=== PATIENT | male | born 1985 | race Caucasian/White ===

== ENCOUNTER 2017-04-11 20:35 | Emergency (ER) | payer OTHER ==
[~2017-04-11] VITALS: Ht 175.3 cm; Wt 103.1 kg
[~2017-04-11 20:35] MED LIST: ADVIL,NUPRIN,M200 MG PO; DOXYCYCLINE HY100 M3 PO; GABAPENTIN400 MG PO; PERCOCET 5/31 TABLET PO; SYSTANE ULTRA 015 ML RIGHT EYE; TYLENOL EXTRA500 MG PO
[2017-04-11 23:26] VITALS: BP 104/65
== END 2017-04-11 23:51 | disposition home or self-care (01) ==
LOC: EME 20:35 → RME 20:35
DX: G43.919 Migraine, unspecified, intractable, without status migrainosus (principal); I10 Essential (primary) hypertension; J45.909 Unspecified asthma, uncomplicated; F32.9 Major depressive disorder, single episode, unspecified; F17.200 Nicotine dependence, unspecified, uncomplicated; F19.10 Other psychoactive substance abuse, uncomplicated; F10.10 Alcohol abuse, uncomplicated; Z91.041 Radiographic dye allergy status
CPT/HCPCS: 99281; 99284; J1100; J1200; J1885; J2765; J7030

== ENCOUNTER 2017-05-01 09:32 | Emergency (ER) | payer OTHER ==
[~2017-05-01] VITALS: Ht 175.3 cm; Wt 102.2 kg
[2017-05-01 11:28] LABS: BASOPHIL COUNT 0.1 K/uL (0-0.1); EOSINOPHIL (%) 0.6 % (0-5); EOSINOPHIL COUNT 0.1 K/uL (0-0.3); HEMATOCRIT 42.7 % (38.0-50.0); IMMATURE GRANULOCYTE (%) 0.2 % (0.0-0.7); INSTRUMENT ABS NEUTROPHIL CT 10.1 K/uL; LYMPHOCYTE COUNT 2.5 K/uL (1.0-2.8); MCH 29.8 PG (29.0-34.0); MCV 90.3 FL (86-99); MEAN PLAT.VOLUME 10.7 uM^3 (9.0-12.4); MONOCYTE (%) 13.5 % (3-12); NEUTROPHIL (%) 68.1 % (45-76); NEUTROPHIL COUNT 10.1 K/uL (1.8-6.4); PLATELET COUNT 254 K/uL (156-360); RBC DIS.WIDTH-CV 12.6 % (11.8-14.6); RBC DIS.WIDTH-SD 42.1 % (39-53); RED BLOOD COUNT 4.73 M/uL (4.00-5.50); WHITE BLOOD COUNT 14.8 K/uL (4.1-10.2)
[2017-05-01 11:37] LABS: CHLORIDE 105 mEq/L (99-109); SODIUM 140 mEq/L (136-147)
[2017-05-01 11:39] LABS: GLUCOSE 98 mg/dL (70-99)
[2017-05-01 11:41] LABS: ANION GAP 9 MEQ/L (2-14)
[2017-05-01 11:43] LABS: GFR ESTIMATE (CALCULATED) > 59 mL/min/
[2017-05-01 11:44] LABS: UREA NITROGEN (BUN) 10 mg/dL (9-23)
[2017-05-01] MEDS ORDERED: ZITHROMAX Z-PA250 MG PO (13:47)
[2017-05-01 14:00] VITALS: BP 129/56
== END 2017-05-01 14:01 | disposition home or self-care (01) ==
LOC: EME 09:32
PROVIDERS: Emergency Medicine
DX: J20.9 Acute bronchitis, unspecified (principal); J45.909 Unspecified asthma, uncomplicated; I10 Essential (primary) hypertension; F32.9 Major depressive disorder, single episode, unspecified; F17.200 Nicotine dependence, unspecified, uncomplicated; F19.10 Other psychoactive substance abuse, uncomplicated; F10.10 Alcohol abuse, uncomplicated
CPT/HCPCS: 71020; 80048; 85025; 99281; 99283

== ENCOUNTER 2017-11-15 09:43 | Emergency (ER) | payer OTHER ==
[~2017-11-15] VITALS: Ht 175.3 cm; Wt 92.8 kg
[~2017-11-15 09:43] MED LIST changes: +ZITHROMAX Z-PA250 MG PO
[2017-11-15 10:31] LABS: HEMATOCRIT 40.6 % (38.0-50.0); MCH 29.9 PG (29.0-34.0); MCHC 34.5 G/DL (30.0-36.0); MCV 86.8 FL (86-99); PLATELET COUNT 220 K/uL (156-360); RBC DIS.WIDTH-CV 14.6 % (11.8-14.6); RBC DIS.WIDTH-SD 46.5 % (39-53); RED BLOOD COUNT 4.68 M/uL (4.00-5.50); WHITE BLOOD COUNT 13.7 K/uL (4.1-10.2)
[2017-11-15 10:49] LABS: ALBUMIN 3.8 g/dL (3.2-4.8); CHLORIDE 107 mEq/L (99-109); POTASSIUM 3.8 mEq/L (3.7-5.4); SODIUM 141 mEq/L (136-147)
[2017-11-15 10:52] LABS: GLUCOSE 117 mg/dL (70-99); TOTAL PROTEIN 6.8 g/dL (6.4-8.3)
[2017-11-15 10:53] LABS: TOTAL BILIRUBIN 0.3 mg/dL (0.0-1.0)
[2017-11-15 10:55] LABS: ALKALINE PHOSPHATASE 75 IU/L (3-129); CREATININE 0.8 mg/dL (0.6-1.3); GFR ESTIMATE (CALCULATED) > 59 mL/min/ (58.99-99999)
[2017-11-15 10:56] LABS: UREA NITROGEN (BUN) 10 mg/dL (9-23)
[2017-11-15 10:57] LABS: AST (GOT) 16 IU/L (2-34)
[2017-11-15 10:58] LABS: ALT (GPT) 22 IU/L (3-49)
[2017-11-15 10:59] LABS: LIPASE 68 U/L (1.0-51.0)
[2017-11-15 11:03] LABS: MONOSPOT (MONONUCLEOSIS SEROL) NEGATIVE
[2017-11-15 13:19] LABS: APPEARANCE CLEAR ((CLEAR)); BILIRUBIN NEGATIVE; BLOOD NEGATIVE; COLOR YELLOW ((YELLOW)); GLUCOSE (STRIP) NEGATIVE; KETONES NEGATIVE; LEUKOCYTES NEGATIVE; NITRITE NEGATIVE; PROTEIN (STRIP) NEGATIVE; SPECIFIC GRAVITY 1.006 (1.000-1.030); UCUL ADDED? NO; UROBILINOGEN 0.2 MG/DL (0.2-1.0)
[2017-11-15 13:49] VITALS: BP 137/58
[2017-11-15 15:06] LABS: THYROTROPIN (TSH) 0.16 MIU/L (0.4-5.5)
[2017-11-16 10:29] LABS: LYME DISEASE SEROLOGY SCREEN NEGATIVE (NEGATIVE)
== END 2017-11-15 13:51 | disposition home or self-care (01) ==
LOC: EME 09:43
PROVIDERS: Physician Assistant
DX: R74.8 Abnormal levels of other serum enzymes (principal); R10.9 Unspecified abdominal pain; I10 Essential (primary) hypertension; J45.909 Unspecified asthma, uncomplicated; F32.9 Major depressive disorder, single episode, unspecified; F17.200 Nicotine dependence, unspecified, uncomplicated; Z86.69 Personal history of other diseases of the nervous system and sense organs; Z88.5 Allergy status to narcotic agent; Z91.041 Radiographic dye allergy status
CPT/HCPCS: 71046; 74176; 80053; 81003; 83690; 84439; 84443; 85027; 86308; 86618; 86664; 86665; 87502; 87651 90; 99281; 99284; J7030

== ENCOUNTER 2017-12-24 16:00 | Emergency (ER) | payer OTHER ==
[~2017-12-24] VITALS: Ht 175.3 cm; Wt 87.8 kg
[2017-12-24 17:07] LABS: HEMATOCRIT 45.6 % (38.0-50.0); HEMOGLOBIN 15.6 G/DL (12.5-16.6); MCH 30.2 PG (29.0-34.0); MCHC 34.2 G/DL (30.0-36.0); MCV 88.2 FL (86-99); PLATELET COUNT 243 K/uL (156-360); RBC DIS.WIDTH-CV 14.2 % (11.8-14.6); RBC DIS.WIDTH-SD 46.2 % (39-53); RED BLOOD COUNT 5.17 M/uL (4.00-5.50); WHITE BLOOD COUNT 10.6 K/uL (4.1-10.2)
[2017-12-24 17:18] LABS: ALBUMIN 4.4 g/dL (3.2-4.8); CHLORIDE 109 mEq/L (99-109); POTASSIUM 3.9 mEq/L (3.7-5.4); SODIUM 143 mEq/L (136-147)
[2017-12-24 17:20] LABS: GLUCOSE 105 mg/dL (70-99)
[2017-12-24 17:21] LABS: TOTAL PROTEIN 7.2 g/dL (6.4-8.3)
[2017-12-24 17:22] LABS: TOTAL BILIRUBIN 0.5 mg/dL (0.0-1.0)
[2017-12-24 17:24] LABS: ALKALINE PHOSPHATASE 72 IU/L (3-129); GFR ESTIMATE (CALCULATED) > 59 mL/min/ (58.99-99999)
[2017-12-24 17:25] LABS: UREA NITROGEN (BUN) 9 mg/dL (9-23)
[2017-12-24 17:26] LABS: AST (GOT) 24 IU/L (2-34)
[2017-12-24 17:27] LABS: ALT (GPT) 25 IU/L (3-49)
[2017-12-24 17:33] LABS: TROP-I INTERPRETATION NEGATIVE; TROPONIN-I < 0.01 ng/mL (0.0-0.30)
[2017-12-24 18:47] VITALS: BP 154/108
== END 2017-12-24 18:39 | disposition home or self-care (01) ==
LOC: EME 16:00
PROVIDERS: Emergency Medicine
DX: R55 Syncope and collapse (principal); J45.909 Unspecified asthma, uncomplicated; I10 Essential (primary) hypertension; F43.10 Post-traumatic stress disorder, unspecified; G43.909 Migraine, unspecified, not intractable, without status migrainosus; F32.9 Major depressive disorder, single episode, unspecified; F17.200 Nicotine dependence, unspecified, uncomplicated; Z87.19 Personal history of other diseases of the digestive system; Z91.041 Radiographic dye allergy status; Z88.5 Allergy status to narcotic agent
CPT/HCPCS: 71046; 80053; 84484; 85027; 93005; 99281; 99285; J7030